=== PATIENT | male | born 1975 | race Caucasian/White ===

== ENCOUNTER 2019-04-08 20:45 | Emergency (ER) | payer OTHER ==
--- NOTE | 2019-04-08 21:27 | ED ---
General Adult HPI - General Chief complaint: Shortness of Breath Stated complaint: Congested Time Seen by Provider: 04/08/19 21:27 Source: patient Mode of arrival: ambulatory Limitations: no limitations - History of Present Illness Initial comments: Félix is a previously healthy 43-year-old gentleman with no history of any cardiac or pulmonary disease. Patient presents the emergency department today for evaluation of runny nose, congestion, minimally productive cough area patient reports he's been coughing so hard at times that he now has pain in his entire chest wall down to his bilateral flanks and up into his bilateral shoulders. Patient reports pain is worse when he is coughing or sneezing. Denies any exertional symptoms, any pressure-like pain any history of chest pain angina or known coronary artery disease. He has no history of hypertension hyperlipidemia or diabetes. He was never a smoker. Patient reports that his significant other and both of their children have similar symptoms. - Related Data Home Medications Medication Instructions Recorded Confirmed [place]-3 Fatty Acids/Fish Oil [Fish 1 cap PO DAILY 04/08/19 04/08/19 Oil 1,000 mg Softgel] Allergies Allergy/AdvReac Type Severity Reaction Status Date / Time No Known Allergies Allergy Verified 04/08/19 21:30 Review of Systems ROS Statement: Those systems with pertinent positive or pertinent negative responses have been documented in the HPI. ROS Other: All systems not noted in ROS Statement are negative. Past Medical History Past Medical History: No Reported History History of Any Multi-Drug Resistant Organisms: None Reported Past Surgical History: No Surgical Hx Reported Past Psychological History: No Psychological Hx Reported Smoking Status: Never smoker Past Alcohol Use History: Occasional Past Drug Use History: None Reported General Exam - General Exam Comments Initial Comments: Physical Exam GENERAL: Patient is well-developed and well-nourished. Patient is nontoxic and well-hydrated and is in no distress. HENT: Normocephalic, Atraumatic. TM normal bilaterally Nasal congestion, mild tenderness to palpation of sinuses EYES: PERRL, EOMI PULMONARY: Unlabored respirations No audible rales rhonchi or wheezing was noted CARDIOVASCULAR: There is a regular rate and rhythm without any murmurs gallops or rubs. ABDOMEN: Soft and nontender with normal bowel sounds. SKIN: Skin is clear with no lesions or rashes and otherwise unremarkable. : Deferred NEUROLOGIC: Patient is alert and oriented x3. Moving all extremities spontaneously MUSCULOSKELETAL: Normal extremities with adequate strength and full range of motion. No lower extremity swelling or edema. No calf tenderness. PSYCHIATRIC: Normal psychiatric evaluation. Limitations: no limitations Course Vital Signs 04/08/19 21:14 Temperature 97.4 F L Pulse Rate 88 Respiratory 16 Rate Blood Pressure 167/84 O2 Sat by Pulse 99 Oximetry EKG Findings - EKG Comments: EKG Findings:: EKG obtained at 2319, rate is 81, rhythm is sinus there is normal axis, there are normal intervals, IN 162, QRS 96, QTC is 44 there are no acute ST elevations or depressions no evidence of ischemia or infarction. Medical Decision Making - Medical Decision Making The patient was seen and evaluated History was obtained from patient and at bedside Strain physical exam are concerning for an upper respiratory infection patient has a nonproductive cough frequent sneezing nasal congestion EKG nonischemic Chest x-ray unremarkable no signs of pneumonia This time I'll discharge the patient home with supportive care. Advised him to begin using Flonase, take steroids take Zyrtec, Mucinex and asked to return for any development of any new or worsening symptoms. All questions pertaining care were answered return parameters discussed patient discharged home in stable condition. Disposition Clinical Impression: Upper respiratory infection Disposition: HOME SELF-CARE Condition: Stable Instructions (If sedation given, give patient instructions): Upper Respiratory Infection (DC) Is patient prescribed a controlled substance at d/c from ED?: No Referrals: Geovanny Guzman MD [Primary Care Provider] - 1-2 days
--- NOTE | 2019-04-08 22:35 | XR ---
EXAM: XR Chest, 2 Views CLINICAL HISTORY: cough TECHNIQUE: Frontal and lateral views of the chest. COMPARISON: No relevant prior studies available. FINDINGS: Lungs: Unremarkable. No consolidation. Pleural space: Unremarkable. No pneumothorax. Heart: Unremarkable. No cardiomegaly. Mediastinum: Unremarkable. Bones/joints: Unremarkable. IMPRESSION: Normal chest x-rays.
[2019-04-09 00:10] VITALS: BP 137/88; PULSE 85; RESP 20; TEMP 98.1
== END 2019-04-09 00:04 | disposition home or self-care (01) ==
LOC: EC 20:45
DX: J06.9 Acute upper respiratory infection, unspecified (principal); Z79.899 Other long term (current) drug therapy
CPT/HCPCS: 71046; 93005; 99285

== ENCOUNTER → 2021-10-26 | Outpatient (CLI) | payer OTHER ==
[2021-10-26 17:57] LABS: Basophils # (A) 0.08 X 10*3/uL (0.00-0.10); Basophils % (A) 0.9 %; Eosinophils # (A) 0.18 X 10*3/uL (0.04-0.35); HCT 54.7 % (39.6-50.0); HGB 18.2 g/dL (13.0-17.0); Lymphocytes # (A) 2.07 X 10*3/uL (0.90-5.00); Lymphocytes % (A) 22.7 %; MCH 30.2 pg (27.0-32.0); MCHC 33.3 g/dL (32.0-37.0); MCV 90.7 fL (80.0-97.0); Mean Platelet Volume 11.3 fL (9.5-12.2); Monocytes # (A) 0.69 X 10*3/uL (0.20-1.00); Monocytes % (A) 7.6 %; Neutrophils # (A) 6.06 X 10*3/uL (1.80-7.70); Neutrophils % (A) 66.3 %; Platelet Count 241 X 10*3/uL (140-440); RBC 6.03 X 10*6/uL (4.40-5.60); RDW 12.6 % (11.5-14.5); WBC 9.13 X 10*3/uL (4.50-10.00)
[2021-10-26 20:32] LABS: African American GFR (CKD) 73.5 (60.0-200.0); Albumin 4.5 g/dL (3.8-4.9); Albumin/Globulin Ratio 1.65 (1.60-3.17); Anion Gap 14.8 mmol/L (10.00-18.00); BUN/Creat Ratio 13.7 Ratio (12.00-20.00); Blood Urea Nitrogen 18.5 mg/dL (9.0-27.0); Calcium 9.8 mg/dL (8.7-10.3); Carbon Dioxide 21.4 mmol/L (20.0-27.5); Globulin 2.7 g/dL (1.6-3.3); Non-African American GFR(CKD) 63.4 (60.0-200.0); Potassium 4.7 mmol/L (3.5-5.5); T4, Free (Free Thyroxine) 0.81 ng/dL (0.800-1.800); Total Bilirubin 0.3 mg/dL (0.30-1.20); Total Protein 7.2 g/dL (6.2-8.2)
== END | disposition home or self-care (01) ==
LOC: LABWHC1 11:05
PROVIDERS: ATTEND Physician Assistant
DX: R63.5 Abnormal weight gain (principal); R53.83 Other fatigue
CPT/HCPCS: 36415; 80053; 82040; 83036; 84270; 84403; 84439; 84443; 84481; 85025